=== PATIENT | male | born 1985 | race Caucasian/White ===

== ENCOUNTER → 2016-09-19 | Outpatient (CLI) | payer BC ==
[~2016-09-19] MED LIST: HYDR1CAP2 PO
--- NOTE | 2016-09-19 15:22 | Diagnostic Imaging Report ---
Clinical indication: Patient with low back pain and sciatica. Exams: 1: X-ray of the sacrum and coccyx, 3 views. 2: X-ray of the lumbar spine, 3 views. Comparison: X-ray of the lumbar spine dated 12/05/2014. Findings: Lumbar spine: Lumbar spine has normal alignment with no acute fracture or dislocation. There are chronic concave deformities involving the inferior L3 endplate, inferior L4 endplate, and superior and inferior L5 endplates. There is no other concern for degenerative disease seen. The intervertebral disc heights and vertebral body heights are within normal limits. Again seen small calcifications overlying the right side of the abdomen or back which may represent phleboliths or soft tissue calcifications. Renal stones can't be completely excluded. Sacrum and coccyx: There is no acute fracture or dislocation. Sacroiliac joints are symmetric with no evidence of bony erosions, sclerosis, or spurs. Symphysis pubis region is unremarkable. The coccygeal region on lateral view is unremarkable, as visualized. Impression: 1: Unremarkable x-ray of the sacrum and coccyx. 2: Again seen small calcifications overlying the right side of the abdomen or back which may represent phleboliths or soft tissue calcifications. Renal stones can't be completely excluded. 3: Stable chronic mild concave deformities of the L3, L4, and L5 vertebra. Otherwise stable x-ray of the lumbar spine. Dictated by: Dictated on workstation # [id number]
== END ==
LOC: RAD 14:36
PROVIDERS: ATTEND Nurse Practitioner Family
DX: M54.41 Lumbago with sciatica, right side (principal)
CPT/HCPCS: 72100; 72220

== ENCOUNTER → 2016-09-27 | Outpatient (CLI) | payer BC, OTHER ==
--- NOTE | 2016-09-28 11:32 | Diagnostic Imaging Report ---
PROCEDURE: MRI lumbar spine. TECHNIQUE: Multiplanar, multisequence MRI of the lumbar spine was performed without contrast. Indication: Back pain There are no previous MRI examinations available for comparison. The lumbar spine exam performed on 09/19/16 noted a long-standing deformities of L3-L4 and L5. There is no sign of an acute bony abnormality. On the parasagittal images of this exam the vertebral body heights and alignment are similar to the previous plain film exam. There is mild narrowing and desiccation of the disc at L3-4, L4-5 and L5-S1. Furthermore the axial images reveal that at the L5-S1 level there is a broad-based disc bulge eccentric to the right. The disc compresses the right ventral aspect of thecal sac but does not produce spinal stenosis. However the disc does result in severe narrowing of the neural foramen on the right and there may be encroachment of the exiting right nerve root at this level. There is also a small focal protrusion of the disc at the L5-S1 level to the left. The disc indents the left ventral aspect of the thecal sac but does not produce spinal stenosis. However the disc is in close proximity to the origin of the exiting left nerve root. At the L4-5 level there is a focal disc protrusion centrally. The disc indents the ventral aspect of the thecal sac and narrows the AP diameter to approximately 12.1 MM. There is moderate narrowing of the neural foramen bilaterally at this level. At the L3-4 level there is also a disc bulge centrally. The disc indents the ventral aspect of the thecal sac and narrows the AP diameter to 9.7 MM. There is also mild narrowing of the neural foramen bilaterally at this level. The remainder of the lumbar spine is unremarkable for spinal stenosis or nerve encroachment. There is no abnormal signal arising from the cord or the vertebral bodies to indicate an acute abnormality. There is no sign of a paraspinal mass. IMPRESSION: 1. There is a broad-based disc protrusion to the right at L5-S1. While there is no evidence for central stenosis at this level, there does appear to be severe narrowing of the neural foramen on the right and there may be encroachment upon the exiting right nerve root. There is also focal disc protrusion to the left at L5-S1 and the disc material is in close proximity to the origin of the exiting left nerve root. 2. There is borderline trefoil stenosis at L3-4 and there is mild narrowing of the neural foramen bilaterally at this level. There is also moderate narrowing of the neural foramen bilaterally at L4-5 although there does not appear to be any significant central stenosis at this level. 3. There is no sign of an acute bony abnormality or of a cord lesion. Dictated by: Dictated on workstation # [id number]
== END ==
LOC: RAD 13:34
PROVIDERS: ATTEND Nurse Practitioner Family
DX: M54.5 Low back pain (principal)
CPT/HCPCS: 72148

== ENCOUNTER 2016-11-21 17:03 | Emergency (ER) | payer BC, OTHER ==
[~2016-11-21] VITALS: Ht 180.3 cm; Wt 95.3 kg
[2016-11-21] MEDS ORDERED: HYOS0.1283 SL (17:16)
--- NOTE | 2016-11-21 17:16 | ED Back Pain ---
General Stated Complaint: MEDICATION WITHDRAWLS Source of Information: Patient Exam Limitations: No Limitations History of Present Illness Time Seen by Provider: 17:13 Initial Comments To ER with reports of nausea and abdominal cramping and diarrhea after running out of his OxyContin and oxycodone after he accidentally dropped a few down the drain he states. K tracks shows that he had 120 oxycodone 10/325 which was a 15 day supply filled on 10/27/16. He then had another 15 day supply of this filled on 11/10/16. He also had OxyContin 20 mg a quantity of 60 which was a 30 day supply filled on the first and filled on the . He states that he was scheduled to run out of these today but the pharmacy didn't have any in stock so he was instructed to come here. He'll also need a work note as he missed work for this. Location: Lumbar Spine Severity: Mild Associated Symptoms: lower back pain Allergies and Home Medications Allergies Coded Allergies: Codeine (Unverified Allergy, Mild, 10/13/08) Morphine (Unverified Allergy, Mild, 10/13/08) Naproxen (Unverified Allergy, Mild, 10/13/08) Home Medications Hydrocodone Bit/Acetaminophen 1 Each Capsule, 1 EACH PO q4h, #14 Ref 0 Prescribed by: KRYSTIN PATEL on 10/13/08 1052 Hyoscyamine Sulfate 0.125 Mg Tab.subl, 0.125 MG SL Q4H PRN for CRAMPS, #20 Prescribed by: BRANDY IBRAHIM on 11/21/16 1716 Constitutional: see HPI EENTM: see HPI Respiratory: no symptoms reported Cardiovascular: no symptoms reported Genitourinary: no symptoms reported Musculoskeletal: see HPI, back pain Skin: no symptoms reported Psychiatric/Neurological: No Symptoms Reported Past Byuqnqm-Bhbfkg-[place] Hx Patient Social History Recent Foreign Travel: No Contact w/Someone Who Travel: No Physical Exam Vital Signs Capillary Refill : General Appearance: No Apparent Distress HEENT: PERRL/EOMI, TMs Normal Neck: Full Range of Motion, Normal Inspection Respiratory: No Accessory Muscle Use, No Respiratory Distress Gastrointestinal: Non Tender, Soft Extremity: Normal Capillary Refill, Normal Inspection Neurologic/Psychiatric: Alert, Oriented x3, No Motor/Sensory Deficits Skin: Normal Color, Warm/Dry Departure Impression Impression: Primary Impression: Opioid dependence Additional Impression: Opiate withdrawal Disposition: HOME, SELF-CARE Condition: Stable Departure-Patient Inst. Decision time for Depature: 17:15 Referrals: ACACIA SAEED MD (PCP/Family) Primary Care Physician Patient Instructions: NO INSTRUCTIONS GIVEN Add. Discharge Instructions: 1. Benadryl one tablet every 4-6 hours as needed 2. Levsin as needed for cramping Scripts Hyoscyamine Sulfate (Levsin-Sl) 0.125 Mg Tab.subl 0.125 MG SL Q4H Y for CRAMPS, #20 TAB Prov: BRANDY IBRAHIM APRN 11/21/16 Work/School Note: Work Release Form Date Seen in the Emergency Department: November 21, 2016 Return to Work: November 22, 2016 Restrictions: No Restrictions Copy Copies To 1: ACACIA SAEED MD, PETER J APRN November 21, 2016 17:16
[2016-11-21 17:25] VITALS: BP 142/100
== END 2016-11-21 17:25 | disposition home or self-care (01) ==
LOC: EDUNIT# 17:03 → ER 17:05
DX: F11.23 Opioid dependence with withdrawal (principal)
CPT/HCPCS: 99281

== ENCOUNTER → 2017-05-28 | Outpatient (CLI) | payer BC, OTHER ==
[~2017-05-28] MED LIST changes: +HYOS0.1283 SL
--- NOTE | 2017-05-28 11:46 | Diagnostic Imaging Report ---
Renal Doppler ultrasound. INDICATION: Hypertension. FINDINGS: The right kidney is 12.1 cm and the left kidney is 10.3 cm in length. There is no hydronephrosis or focal lesion. The right renal artery velocities are 68, 78 and 74 cm/s from proximal to distal and on the left 62, 76, and 74 cm/s. The resistive index in the right kidney is 0.61-0.63 and on the left side is 0.63-0.64. IMPRESSION: Unremarkable exam. No evidence of significant renal artery stenosis. Dictated by: Dictated on workstation # [id number]
== END ==
LOC: RAD 08:08
PROVIDERS: ATTEND Nurse Practitioner Family
DX: I10 Essential (primary) hypertension (principal)
CPT/HCPCS: 93975

== ENCOUNTER → 2019-03-11 | Outpatient (CLI) | payer OTHER, BC ==
--- NOTE | 2019-03-11 13:52 | Diagnostic Imaging Report ---
PROCEDURE: MRI lumbar spine. TECHNIQUE: Multiplanar, multisequence MRI of the lumbar spine was performed without contrast. INDICATION: Back pain. COMPARISON: Comparison is made with prior examination of 09/27/2016. FINDINGS: The alignment of the lumbar spine is normal. The vertebral body heights are well-maintained. There are postsurgical changes of an anterior lumbar fusion at L5-S1. There is no spondylolysis or spondylolisthesis. Conus medullaris seen at L1 is normal in appearance. T12-L1 disc is normal in height, signal intensity, and morphology. At L1-L2, there is loss of disc height and signal intensity as well as a left paramedian disc protrusion. There is slight effacement of ventral thecal sac and minimal encroachment upon the left lateral recess. There is no significant neural foraminal encroachment. At L2-L3, there is loss of disc height and signal intensity. There is some annular bulging. This is more prominent on the left paramedian and lateral distribution. There is facet disease and thickening of ligamentum flavum. There is moderate spinal stenosis with some encroachment upon the left lateral recess. There is moderate bilateral neural foraminal encroachment. At L3-L4, there is loss of disc height and signal intensity. There is some annular bulging, facet disease and thickening of ligamentum flavum. There is moderate spinal stenosis with encroachment upon the lateral recess bilaterally. There is moderate bilateral neural foraminal encroachment. At L4-L5, there is annular bulging as well as a central disc protrusion. There is some facet disease. There is moderate spinal stenosis with marked encroachment upon the lateral recess bilaterally. There is [id number] bilateral neural foraminal encroachment. At L5-S1, there has been a laminectomy. There is no significant spinal stenosis. There is no significant neural foraminal encroachment. Bone graft material is seen within the disc space. The aorta is nonaneurysmal. Kidneys are normal in appearance. IMPRESSION: Diffuse lumbar spondylosis and degenerative disc disease as described. Postsurgical changes at L5-S1 as detailed above. Dictated by: Dictated on workstation # [id number]
== END ==
LOC: RAD 12:33
PROVIDERS: ATTEND Nurse Practitioner Family
DX: M51.26 Other intervertebral disc displacement, lumbar region (principal); M48.061 Spinal stenosis, lumbar region without neurogenic claudication; M47.816 Spondylosis without myelopathy or radiculopathy, lumbar region; M51.36 Other intervertebral disc degeneration, lumbar region; Z98.890 Other specified postprocedural states
CPT/HCPCS: 72148

== ENCOUNTER → 2019-07-15 | Outpatient (CLI) | payer BC, OTHER ==
--- NOTE | 2019-07-15 16:17 | Diagnostic Imaging Report ---
PROCEDURE: CT lumbar spine without contrast. TECHNIQUE: Multiple contiguous axial images were obtained through the lumbar spine without the use of intravenous contrast. Sagittal and coronal reformations were then performed. Auto Exposure Controls were utilized during the CT exam to meet ALARA standards for radiation dose reduction. INDICATION: Low back pain. COMPARISON: MRI of the lumbar spine from 03/11/2019. FINDINGS: There are surgical changes from anterior lumbar discectomy and interbody fusion utilizing plate and screw fixation anteriorly. There is also a metal cage for bone graft material. No osseous incorporation across the L5-S1 discectomy site. Laminectomy has also been performed at L5 with posterior instrumented fusions of L5-S1. The bi-pedicular fixation screws are intact and have no features of loosening. There appears to be partial osseous fusion of the bone graft material across the posterior elements of L5 and S1. No vertebral body fracture. SI joints are normal in appearance. Nonobstructing 3 mm stone in the lower pole of the right kidney. No concerning abnormality in the retroperitoneum. No areas of high-grade spinal stenosis. Very mild adjacent segment disc disease at L4-L5 has disc bulge without spinal stenosis. Mild bilateral neuroforaminal narrowing is similar to prior MRI. IMPRESSION: 1. Anterior lumbar interbody fusion at L5-S1 has intact hardware. There is no osseous incorporation of the interbody bone graft material. 2. Laminectomy of L5 with posterior instrumented fusion is also intact. There is partial osseous incorporation of the bone graft along the posterior elements on both sides at L5-S1. 3. Mild adjacent segment disc disease is similar to MRI spine from 03/11/2019. Dictated by: Dictated on workstation # [id number]
== END ==
LOC: RAD 15:43
PROVIDERS: ATTEND Neurological Surgery
DX: M51.36 Other intervertebral disc degeneration, lumbar region (principal); Z98.1 Arthrodesis status
CPT/HCPCS: 72131

== ENCOUNTER → 2019-08-13 | Outpatient (CLI) | payer BC, OTHER ==
[2019-08-13 07:40] LABS: BASOPHILS % (AUTO) 0 % (0-10); EOSINOPHILS # (AUTO) 0.1 10^3/uL (0.0-0.3); EOSINOPHILS % (AUTO) 1 % (0-10); HEMATOCRIT 39 % (40-54); HEMOGLOBIN 12.8 G/DL (13.3-17.7); LYMPHOCYTES # (AUTO) 1.5 X 10^3 (1.0-4.0); LYMPHOCYTES % (AUTO) 23 % (12-44); MEAN CORPUSCULAR HEMOGLOBIN 29 PG (25-34); MEAN CORPUSCULAR HGB CONC 33 G/DL (32-36); MEAN CORPUSCULAR VOLUME 87 FL (80-99); MEAN PLATELET VOLUME 9.6 FL (7.4-10.4); MONOCYTES # (AUTO) 0.7 X 10^3 (0.0-1.0); MONOCYTES % (AUTO) 11 % (0-12); NEUTROPHILS # (AUTO) 4.2 X 10^3 (1.8-7.8); NEUTROPHILS % (AUTO) 65 % (42-75); PLATELET COUNT 233 10^3/uL (130-400); RED CELL DISTRIBUTION WIDTH 13.4 % (10.0-14.5); WHITE BLOOD COUNT 6.4 10^3/uL (4.3-11.0)
[2019-08-13 08:03] LABS: ALANINE AMINOTRANSFERASE 24 U/L (0-55); ALBUMIN 4.4 GM/DL (3.2-4.5); ALKALINE PHOSPHATASE 55 U/L (40-136); BILIRUBIN,TOTAL 0.4 MG/DL (0.1-1.0); BUN/CREATININE RATIO 10; CALCIUM 8.9 MG/DL (8.5-10.1); CARBON DIOXIDE 26 MMOL/L (21-32); CHLORIDE 106 MMOL/L (98-107); CREATININE SERUM 0.78 MG/DL (0.60-1.30); GFR ESTIMATED > 60; GLUCOSE 98 MG/DL (70-105); POTASSIUM 3.9 MMOL/L (3.6-5.0); SODIUM 141 MMOL/L (135-145); TOTAL PROTEIN 6.7 GM/DL (6.4-8.2); URIC ACID 5.8 MG/DL (2.6-7.2)
[2019-08-13 08:20] LABS: ERYTHROCYTE SEDIMENTATION RATE 8 MM/HR (0-15)
== END ==
LOC: LAB 07:18
PROVIDERS: ATTEND Nurse Practitioner Family
DX: F41.1 Generalized anxiety disorder (principal); R61 Generalized hyperhidrosis; M54.9 Dorsalgia, unspecified
CPT/HCPCS: 36415; 80053; 82533; 84443; 84550; 85025; 85652; 86038

== ENCOUNTER 2020-07-27 15:58 | Emergency (ER) | payer OTHER ==
[~2020-07-27] VITALS: Ht 180 cm; Wt 104.0 kg
[2020-07-27] MEDS ORDERED: DOXY100T2 PO (16:21)
[2020-07-27] MEDS ORDERED: ACHD5005 PO (16:21)
--- NOTE | 2020-07-27 16:22 | ED GU-Male ---
General Chief Complaint: Male Reproductive Stated Complaint: R SIDE TESTICLE PAIN Nursing Triage Note: PT REPORTS TO ED FOR RT TESTICULAR PAIN X'S 2 WEEKS. DENIES INJURY. Source: patient Exam Limitations: no limitations History of Present Illness Date Seen by Provider: Jul 27, 2020 Time Seen by Provider: 16:17 Initial Comments To ER with right testicle pain for 2 to 3 weeks getting progressively worse without fevers chills nausea vomiting or any systemic symptoms. He is sexually active. Timing/Duration: just prior to arrival Severity/Quality: moderate Location: scrotal Radiation: none Activities at Onset: none Sexual [place] History: not active Associated Symptoms: denies symptoms Allergies and Home Medications Allergies Coded Allergies: Codeine (Unverified Allergy, Mild, 10/13/08) Morphine (Unverified Allergy, Mild, 10/13/08) Naproxen (Unverified Allergy, Mild, 10/13/08) Home Medications Doxycycline Hyclate 100 Mg Tablet, 100 MG PO BID Prescribed by: BRANDY IBRAHIM on 07/27/20 1621 Hydrocodone Bit/Acetaminophen 1 Each Capsule, 1 EACH PO q4h Prescribed by: KRYSTIN PATEL on 10/13/08 1052 Hydrocodone/Acetaminophen 1 Each Tablet, 1 TAB PO Q4H PRN for PAIN-MODERATE (5- 7) Prescribed by: BRANDY IBRAHIM on 07/27/20 1622 Hyoscyamine Sulfate 0.125 Mg Tab.subl, 0.125 MG SL Q4H PRN for CRAMPS Prescribed by: BRANDY IBRAHIM on 11/21/16 1716 Patient Home Medication List Home Medication List Reviewed: Yes Review of Systems Review of Systems Constitutional: see HPI; No chills, No fever EENTM: see HPI Respiratory: no symptoms reported Cardiovascular: no symptoms reported Genitourinary: no symptoms reported Musculoskeletal: no symptoms reported Skin: no symptoms reported Psychiatric/Neurological: No Symptoms Reported Endocrine: No Symptoms Reported Hematologic/Lymphatic: No Symptoms Reported Past Slgxewi-Admpky-Hbpcox Hx Patient Social History Alcohol Use: Denies Use Smoking Status: Former Smoker Recent Infectious Disease Expo: No Recent Hopitalizations: No Immunizations Up To Date Tetanus Booster (TDap): Less than 5yrs Seasonal Allergies Seasonal Allergies: No Past Medical History Surgeries: Yes Appendectomy, Joint Replacement, Vasectomy Respiratory: Yes Asthma Cardiac: No Neurological: No Sexually Transmitted Disease: No HIV/AIDS: No Genitourinary: No Gastrointestinal: No Musculoskeletal: No Endocrine: No HEENT: No Cancer: No Psychosocial: Yes Anxiety Integumentary: No Blood Disorders: No Physical Exam Vital Signs Vital Signs - First Documented 07/27/20 16:04 Temp 36.0 Pulse 70 Resp 18 B/P (MAP) 154/101 (118) Pulse Ox 98 O2 Delivery Room Air Capillary Refill : Less Than 3 Seconds Height, Weight, BMI Height: 5'11.00" Weight: 210lbs. oz. 95.842325zz; 32.00 BMI Method:Stated General Appearance: WD/WN, no apparent distress HEENT: PERRL/EOMI, normal ENT inspection Respiratory: normal breath sounds, no respiratory distress, no accessory muscle use Gastrointestinal: normal bowel sounds, soft Genital/Rectal: other (Right testicle is with a tender epididymis but not significantly enlarged. The scrotum is normal in appearance.) Extremities: normal range of motion, non-tender Neurologic/Psychiatric: alert, normal mood/affect, oriented x 3 Skin: normal color, warm/dry Progress/Results/Core Measures Suspected Sepsis Recent Fever Within 48 Hours: No Infection Criteria Present: None New/Unexplained Altered Menta: No Sepsis Screen: No Definite Risk SIRS Temperature: Pulse: 70 Respiratory Rate: 18 Blood Pressure 154 /101 Mean: 118 Results/Orders Lab Results Laboratory Tests Test 07/27/20 16:37 Range/Units My Orders Orders - BRANDY IBRAHIM APRN Us Scrotum (Testicle) [id number] (07/27/20 16:00) Ua Culture If Indicated (07/27/20 16:00) Neis Jamarcus Dna Urine Test (07/27/20 16:00) Chlamydia Trachomatis Urine (07/27/20 16:00) Vital Signs/I&O 07/27/20 16:04 Temp 36.0 Pulse 70 Resp 18 B/P (MAP) 154/101 (118) Pulse Ox 98 O2 Delivery Room Air Capillary Refill : Less Than 3 Seconds Blood Pressure Mean: 118 Departure Communication (Admissions) NAME: ALO WINTERS [facility] REC#: [id number] PT STATUS: REG ER : 1985 PHYSICIAN: BRANDY IBRAHIM APRN ADMIT DATE: 07/27/20/ER Draft Date of Exam:07/27/20 US SCROTUM (Testicle) [id number] PROCEDURE: US Scrotum. TECHNIQUE: Multiple real-time grayscale images were obtained over the scrotum in various projections bilaterally. INDICATION: Right testicle pain. COMPARISON: None FINDINGS: The right testicle measures 4.2 x 2.6 x 3.1 cm. Vascularity appears normal. A few punctate microcalcifications are seen. No masses are seen. The epididymis appears mildly enlarged and heterogeneous, with increased vascularity. No hydrocele is seen. The left testicle measures 4.7 x 2.5 x 2.7 cm. There is a small hydrocele. The testicle has normal vascularity and no masses are seen. Several punctate microcalcifications are also noted. The epididymis has normal vascularity, and a 5 mm epididymal head cyst. IMPRESSION: 1. Right epididymitis. 2. Small left hydrocele. 3. No orchitis or torsion. 4. Testicular microlithiasis. No masses are seen. Recommend routine self examination. Dictated on workstation # [id number] Dict: 07/27/20 1635 Trans: 07/27/20 1641 [facility] [id number] Interpreted by: YTLER RAMEY MD Electronically signed by: Impression Primary Impression: Epididymitis Disposition: HOME, SELF-CARE Condition: Stable Departure-Patient Inst. Decision time for Depature: 16:20 Referrals: NO,LOCAL PHYSICIAN (PCP/Family) Primary Care Physician Patient Instructions: Epididymitis Add. Discharge Instructions: Wear underwear that are supportive and elevate the scrotum. Ice pack to the scrotum. Pain medication as directed. Antibiotics as directed. Follow-up with your doctor next week. All discharge instructions reviewed with patient and/or family. Voiced understanding. Scripts Hydrocodone/Acetaminophen (Hydrocodone-Acetamin 5-325 mg) 1 Each Tablet 1 TAB PO Q4H PRN for PAIN-MODERATE (5-7), #14 TAB Prov: BRANDY IBRAHIM [employer]ER SUPPORT EXECUTIVE 07/27/20 Doxycycline Hyclate (Doxycycline Hyclate) 100 Mg Tablet 100 MG PO BID, #20 TAB 0 Refills Prov: BRANDY IBRAHIM APRN 07/27/20 BRANDY IBRAHIM APRN Jul 27, 2020 16:22
--- NOTE | 2020-07-27 16:42 | Diagnostic Imaging Report ---
PROCEDURE: US Scrotum. TECHNIQUE: Multiple real-time grayscale images were obtained over the scrotum in various projections bilaterally. INDICATION: Right testicle pain. COMPARISON: None FINDINGS: The right testicle measures 4.2 x 2.6 x 3.1 cm. Vascularity appears normal. A few punctate microcalcifications are seen. No masses are seen. The epididymis appears mildly enlarged and heterogeneous, with increased vascularity. No hydrocele is seen. The left testicle measures 4.7 x 2.5 x 2.7 cm. There is a small hydrocele. The testicle has normal vascularity and no masses are seen. Several punctate microcalcifications are also noted. The epididymis has normal vascularity, and a 5 mm epididymal head cyst. IMPRESSION: 1. Right epididymitis. 2. Small left hydrocele. 3. No orchitis or torsion. 4. Testicular microlithiasis. No masses are seen. Recommend routine self examination. Dictated by: Dictated on workstation # [id number]
[2020-07-27 16:45] LABS: BILIRUBIN,URINE NEGATIVE (NEGATIVE); CLARITY,URINE CLEAR; COLOR,URINE YELLOW; GLUCOSE, URINE (UA) NEGATIVE (NEGATIVE); KETONES,URINE NEGATIVE (NEGATIVE); LEUKOCYTE ESTERASE ,URINE NEGATIVE (NEGATIVE); NITRITE,URINE NEGATIVE (NEGATIVE); PROTEIN,URINE TRACE (NEGATIVE)
[2020-07-27 16:52] LABS: BACTERIA,URINE TRACE /HPF; SQUAMOUS EPITHELIAL CELL,UR RARE /HPF; WBC,URINE RARE /HPF
[2020-07-27] MEDS ORDERED: cefTRIAXone 1,000 MG/2.86 ml vial (IM ONLY) IM SCH (17:15)
[2020-07-27] MEDS ORDERED: LIDOCAINE 1% INJ 20 ML 20 ML VIAL INJ ONE (17:15)
[2020-07-27] MEDS ORDERED: AZITHROMYCIN 250 MG TAB (ZITHROMAX) PO SCH (17:15)
[2020-07-27 17:19] VITALS: BP 142/97
== END 2020-07-27 17:19 | disposition home or self-care (01) ==
LOC: EDUNIT# 15:58 → ER 16:00
DX: N45.1 Epididymitis (principal); Z87.891 Personal history of nicotine dependence; Z88.5 Allergy status to narcotic agent; Z88.8 Allergy status to other drugs, medicaments and biological substances
CPT/HCPCS: 36415; 76870; 81000; 87491; 87591